=== PATIENT | male | born 1995 | race Hispanic/Latino ===

== ENCOUNTER 2020-03-07 15:40 | Emergency (ER) | payer SELFPAY ==
[2020-03-07] MEDS ORDERED: Azithromycin 250 MG TAB ONE (16:36)
[2020-03-07] MEDS ORDERED: cefTRIAXone\\ROCEPHIN 250 MG VIAL ONE (16:36)
[2020-03-07] MEDS ORDERED: Lidocaine 1% PF 5 ML VIAL ONE ×2 (16:36→16:39)
[2020-03-07 17:04] LABS: Bacteria/HPF 3+ HPF (None Seen); Bilirubin Negative (Negative); Blood, Urine Negative (Negative); Clarity Turbid (Clear); Glucose, Urine (Dipstick) Normal (Negative); Ketone, Urine Negative (Negative); Leukocyte 500 Leu/uL (Negative); Nitrite Negative (Negative); Protein, Urine (Dipstick) Negative (Neg-Trace); RBC/HPF 0-3 HPF (0-3); Specific Gravity, Urine 1.014 (1.002-1.036); Squamous Epithelial None Seen HPF (0-3); Urobilinogen Normal mg/dL (Less than 2); WBC/HPF Greater than 50 HPF (0-3); pH, Urine 6.5 (5.0-9.0)
[2020-03-08 18:53] LABS: Chlam.trachomatis by PCR,Urine DETECTED (NotDetected)
== END 2020-03-07 17:28 | disposition home or self-care (01) ==
LOC: ERS 15:40
DX: N34.2 Other urethritis (principal)
CPT/HCPCS: 81003; 81015; 87491; 87591; 96372; 99283; J0696